=== PATIENT | female | born 1965 | race Caucasian/White ===

== ENCOUNTER 2016-12-06 10:54 | Emergency (ER) | payer OTHER ==
[~2016-12-06 10:54] MED LIST: ALAVERT10 MG PO; ALAVERT10 MG/TAB; AMOXICILLIN500 M1 PO; AUGMENTIN875 MG PO; BENZONATATE PO; BP MED; CALAN40 MG PO; CLARITIN10 MG PO; DEPAKOTE ER PO; DULERA 100 MCG/13 GM IH; FIORICET 50-321 EACH PO; FLONASE 0.05% N16 G1; FLONASE16 GM; HYDROCODON-ACE1 EAC7 PO; IMITREX PO; IMITREX6 MG/0.51 SQ; INDERAL20 MG DOB; IRON1 TA1 PO; IRON1 TAB; LORTAB 10-5001 EACH PO; LYRICA100 MG PO; MAGNESIUM OXIDE; MEDROL4 MG/DOSE- PO; MEVACOR PO; MOBIC PO; NAPROSYN-EC500 M1 DOB; NAPROSYN-EC500 MG PO; NAPROXEN SODIU550 MG PO; NEURONTIN800 MG PO; NORCO1 TAB 10/3 PO; PRILOSEC PO; PRILOSEC40 MG PO; PROAIR HFA8.5 GM IH; PROZAC PO; REMERON15 MG PO; SEASONIQUE1 BLIST PA PO; SINGULAIR PO; SUMATRIPTAN SU100 MG PO; TESSALON200 MG PO; TOPAMAX PO; TYLENOL #3 PO; VITAMIN B12; ZANAFLEX PO; ZANAFLEX4 M1 PO; [UNRECOGNIZED DRUG - OTHER] PO; [UNRECOGNIZED DRUG - OTHER] PO; [UNRECOGNIZED DRUG - REMARK]
== END 2016-12-06 12:18 | disposition home or self-care (01) ==
LOC: SED 10:54
DX: T16.2XXA Foreign body in left ear, initial encounter (principal); J45.909 Unspecified asthma, uncomplicated; E78.5 Hyperlipidemia, unspecified; Z88.2 Allergy status to sulfonamides; Z88.8 Allergy status to other drugs, medicaments and biological substances; Z79.899 Other long term (current) drug therapy
CPT/HCPCS: 99282